=== PATIENT | male | born 1985 | race Caucasian/White ===

== ENCOUNTER 2025-06-23 16:33 | Inpatient (IN) | payer MEDICAID ==
[~2025-06-23] VITALS: Ht 167.6 cm; Wt 59.0 kg
[2025-06-23 16:30] VITALS: BP 142/95; PULSE 114; RESP 18; TEMP 98.1; O2SAT 98
[~2025-06-23 16:33] MED LIST: DESM0.2T4 PO; IMIP10TA PO; IMIP50TA PO; LEVO125 PO; LEVO125T95 PO; LITH300C3 PO; MIRT-89 PO; QUET300T19 PO; QUET300T2 PO
[2025-06-24 05:25] VITALS: BP 142/92; PULSE 100; RESP 17; TEMP 97.9; O2SAT 98
[2025-06-24 08:10] VITALS: BP 123/81; PULSE 91; RESP 18; TEMP 97.8; O2SAT 99
[2025-06-24] MEDS ORDERED: ACETAMINOPHEN 325 MG TABLET PO PRN (09:15)
[2025-06-24] MEDS ORDERED: BACITRACIN 28 GM OINTMENT TP PRN (09:15)
[2025-06-24] MEDS ORDERED: LOPERAMIDE HCL 2 MG CAPSULE PO PRN (09:15)
[2025-06-24] MEDS ORDERED: MAG HYDROX/ALUMINUM HYD/SIMETH ES 30 ML SUSPENSION UDCUP PO PRN (09:15)
[2025-06-24] MEDS ORDERED: OMEPRAZOLE 20 MG CAPSULE PO PRN (09:15)
[2025-06-24] MEDS ORDERED: ONDANSETRON 4 MG TABLET PO PRN (09:15)
[2025-06-24] MEDS ORDERED: ALBUTEROL SULFATE HFA 90 MCG/PUFF 8 GM INHALER IH PRN (09:15)
[2025-06-24] MEDS ORDERED: IBUPROFEN 600 MG TABLET PO PRN (09:15)
[2025-06-24] MEDS ORDERED: PETROLATUM,WHITE 28 GM JELLY TP PRN (09:15)
[2025-06-24] MEDS ORDERED: BENZOCAINE/MENTHOL [CEPACOL] LOZENGE PO PRN (09:15)
[2025-06-24] MEDS ORDERED: MAGNESIUM HYDROXIDE SUSPENSION 30 ML UDCUP PO PRN (09:15)
[2025-06-24] MEDS ORDERED: DOCUSATE SODIUM 100 MG CAPSULE PO PRN (09:15)
[2025-06-24] MEDS: LITHIUM CARBONATE 300 MG CAPSULE PO SCH (09:53)
[2025-06-24 20:07] VITALS: BP 133/94; PULSE 100; RESP 18; TEMP 98.2; O2SAT 100
[2025-06-24] MEDS: DESMOPRESSIN ACETATE 0.2 MG TABLET PO SCH (20:44)
[2025-06-24] MEDS: MIRTAZAPINE 15 MG TABLET PO SCH (20:44)
[2025-06-24] MEDS: ZOLPIDEM TARTRATE 10 MG TABLET PO PRN (20:44)
[2025-06-24] MEDS: IMIPRAMINE HCL 10 MG TABLET PO SCH (21:00)
[2025-06-25] MEDS: LEVOTHYROXINE SODIUM 125 MCG TABLET PO SCH (06:29)
[2025-06-25 08:17] VITALS: BP 125/89; PULSE 88; RESP 18; TEMP 98.2; O2SAT 95
[2025-06-25 09:13] LABS: PLATELET COUNT (AUTO) 149 K/uL (150-450); RED BLOOD CELL COUNT(AUTO) 4.68 MIL/uL (4.50-5.90); RED CELL DISTRIBUTION WIDTH 13.9 % (11.5-14.5); WHITE BLOOD COUNT (AUTO) 3.4 K/uL (4.5-11.0)
[2025-06-25 09:39] LABS: ASPARTATE AMINOTRANSFERASE 26 U/L (15-37); CALCIUM, TOTAL 8.5 mg/dL (8.8-10.5); CHOL/HDL RATIO 2.3 (4.2-7.3); CREATININE 0.73 mg/dL (0.60-1.30); GLOMERULAR FILTR. RATE CALC > 60 mL/min (>60); GLUCOSE,RANDOM 181 mg/dL (70-110); LDL CHOL (CALC.) 43 mg/dL (0-130); SODIUM SERUM 141 mmol/L (136-145); TOTAL PROTEIN, SERUM 6.3 g/dL (6.4-8.2); UREA NITROGEN, BLOOD 13 mg/dL (7-18)
[2025-06-25 09:58] LABS: APPEARANCE,URINE CLEAR (CLEAR); GLUCOSE, URINE (UA) NEGATIVE (NEGATIVE); LEUKOCYTE ESTERASE ,URINE NEGATIVE (NEGATIVE); NITRATE,URINE NEGATIVE (NEGATIVE); OCCULT BLOOD,URINE NEGATIVE (NEGATIVE); PH,URINE DRUG SCREEN 6.0 (5.0-8.0); SPECIFIC GRAVITIY, URINE 1.009 (1.003-1.030)
[2025-06-25 10:05] LABS: AMPHET/METH SCREEN,URINE NEGATIVE (NEGATIVE); BARBITURATE SCREEN, URINE NEGATIVE (NEGATIVE); CANNABINOID SCREEN,URINE NEGATIVE (NEGATIVE); COCAINE SCREEN,URINE NEGATIVE (NEGATIVE); METHADONE SCREEN, URINE NEGATIVE (NEGATIVE)
[2025-06-25 10:11] LABS: ALCOHOL, URINE DRUG SCREEN NEGATIVE (NEGATIVE)
[2025-06-25 20:09] VITALS: BP 131/90; PULSE 91; RESP 18; TEMP 98.2; O2SAT 97
[2025-06-26 08:18] VITALS: BP 124/86; PULSE 97; RESP 18; TEMP 97.5; O2SAT 98
[2025-06-26 20:22] VITALS: BP 126/90; PULSE 76; RESP 18; TEMP 98.2; O2SAT 98
[2025-06-27 08:34] VITALS: BP 107/72; PULSE 92; RESP 17; TEMP 98; O2SAT 99
[2025-06-27 20:48] VITALS: BP 123/81; PULSE 97; RESP 18; TEMP 97.9; O2SAT 96
[2025-06-28 08:22] VITALS: BP 120/87; PULSE 72; RESP 18; TEMP 97.5; O2SAT 100
[2025-06-28 20:18] VITALS: BP 118/84; PULSE 87; RESP 17; TEMP 97.8; O2SAT 98
[2025-06-29 08:26] VITALS: BP 138/83; PULSE 62; RESP 16; TEMP 97.9; O2SAT 100
[2025-06-29 20:16] VITALS: BP 118/78; PULSE 100; RESP 19; TEMP 98.4; O2SAT 98
[2025-06-30 08:06] VITALS: BP 115/78; PULSE 100; RESP 16; TEMP 97.9; O2SAT 98
[2025-06-30] MEDS ORDERED: LEVO125 PO ×2 (16:23→18:29)
[2025-06-30] MEDS ORDERED: LITH300C3 PO (18:29)
[2025-06-30] MEDS ORDERED: DESM0.2T4 PO (18:29)
[2025-06-30] MEDS ORDERED: QUET300T2 PO (18:29)
[2025-06-30] MEDS ORDERED: MIRT-89 PO (18:29)
[2025-06-30] MEDS ORDERED: IMIP50TA PO (18:29)
== END 2025-06-30 18:40 | disposition home or self-care (01) | DRG 761 ==
LOC: B3A 17:58
PROVIDERS: ADMIT Psychiatry & Neurology Psychiatry; ATTEND Psychiatry & Neurology Psychiatry
PROC: GZHZZZZ Group Psychotherapy (ICD-10-PCS; principal; 2025-06-24)
PROC: GZ51ZZZ Individual Psychotherapy, Behavioral (ICD-10-PCS; 2025-06-24)
DX: F25.0 Schizoaffective disorder, bipolar type (principal); R45.850 Homicidal ideations; F41.9 Anxiety disorder, unspecified; F79 Unspecified intellectual disabilities; R62.50 Unspecified lack of expected normal physiological development in childhood; I10 Essential (primary) hypertension; G47.00 Insomnia, unspecified; J45.909 Unspecified asthma, uncomplicated; F95.2 Tourette's disorder; Q86.0 Fetal alcohol syndrome (dysmorphic); Z79.899 Other long term (current) drug therapy
CPT/HCPCS: 80053; 80061; 80178; 80307; 81003; 83036; 84439; 84443; 85025

== ENCOUNTER 2025-06-23 23:46 | Emergency (ER) | payer MEDICAID, OTHER ==
[~2025-06-23] VITALS: Ht 157.5 cm; Wt 63.6 kg
[2025-06-23 23:57] VITALS: BP 120/85; PULSE 100; RESP 18; TEMP 98.1; O2SAT 100
[2025-06-24 01:04] LABS: COVID AG,FIA SOURCE NASAL SWAB
[2025-06-24 01:16] LABS: SARS-COV2 (COVID) ANTIGEN,FIA Negative (Negative)
== END 2025-06-24 04:37 | disposition home or self-care (01) ==
LOC: EMS 23:48
DX: S00.83XA Contusion of other part of head, initial encounter (principal); E03.9 Hypothyroidism, unspecified; F20.9 Schizophrenia, unspecified; K21.9 Gastro-esophageal reflux disease without esophagitis; Z79.899 Other long term (current) drug therapy; Z20.822 Contact with and (suspected) exposure to COVID-19; Y04.0XXA Assault by unarmed brawl or fight, initial encounter; Y93.89 Activity, other specified; Y92.89 Other specified places as the place of occurrence of the external cause; Y99.8 Other external cause status
CPT/HCPCS: 99283